=== PATIENT | female | born 1965 | race Caucasian/White ===

== ENCOUNTER → 2019-11-17 | Outpatient (CLI) | payer OTHER ==
[~2019-11-17] MED LIST: ACHD5005 PO; CIPR-225 PO; LEVO75TA PO; PRD20T PO
--- NOTE | 2019-11-17 14:01 | Diagnostic Imaging Report ---
INDICATION: Right flank pain. TIME OF EXAM: 1:37 PM FINDINGS: Single view of the abdomen demonstrates bowel gas pattern to be nonobstructive. No radiopaque urinary tract calculi are seen. No free air. IMPRESSION: No acute feature detected. Dictated by: Dictated on workstation # [id number]
== END ==
LOC: RAD 13:00
PROVIDERS: ATTEND Nurse Practitioner Family
DX: R10.9 Unspecified abdominal pain (principal)
CPT/HCPCS: 74018

== ENCOUNTER → 2021-12-13 | Outpatient (CLI) | payer OTHER ==
--- NOTE | 2021-12-13 08:02 | Diagnostic Imaging Report ---
INDICATION: Right upper quadrant abdominal pain. Gallbladder sonography performed in the routine fashion. The liver shows normal echogenicity without focal lesion. Gallbladder is unremarkable. No stones or wall thickening. Common duct measured 5 mm. Portal vein is patent with hepatopetal flow. Pancreas is not well seen due to overlying gas. Visualized portions of aorta and IVC are normal. Right kidney measured 8.4 cm in length and was unremarkable. There was no ascites. IMPRESSION: Unremarkable ultrasound of the right upper quadrant. Dictated by: Dictated on workstation # [id number]
== END ==
LOC: RAD 07:15
PROVIDERS: ATTEND Nurse Practitioner Family
DX: R10.11 Right upper quadrant pain (principal)
CPT/HCPCS: 76705

== ENCOUNTER → 2021-12-27 | Outpatient (CLI) | payer OTHER ==
[~2021-12-27] MED LIST changes: +CATHETER FLUSH 10 ML SYR IV PRN
--- NOTE | 2021-12-27 12:37 | Diagnostic Imaging Report ---
RADIOPHARMACEUTICAL: 5.35 mCi Tc-99m Choletec IV INDICATION: Abdominal pain. COMPARISON: Ultrasound dated December 13, 2021. TECHNIQUE: Anterior dynamic imaging for 1 hour. Additional 60 minutes of imaging was performed after the patient ingested an 8-ounce can of Ensure Plus. FINDINGS: There is homogenous uptake throughout the liver. The gallbladder is visualized at 35 minutes and small bowel at 20 minutes. After ingesting an 8-ounce can of Ensure, there is abnormal contraction of the gallbladder with a gallbladder ejection fraction calculated at less than 8%. IMPRESSION: 1. No evidence of acute cholecystitis or common duct obstruction. 2. Abnormally low GBEF of less than 8%. This can relate to chronic acalculous cholecystitis versus biliary dyskinesia. Dictated by: Dictated on workstation # [id number]
== END ==
LOC: CARD 09:42
PROVIDERS: ATTEND Nurse Practitioner Family
DX: R10.11 Right upper quadrant pain (principal)
CPT/HCPCS: 78227

== ENCOUNTER 2023-03-02 18:01 | Emergency (ER) | payer OTHER ==
[~2023-03-02] VITALS: Ht 160 cm; Wt 67.1 kg
[~2023-03-02 18:01] MED LIST changes: -CATHETER FLUSH 10 ML SYR IV PRN
[2023-03-02] MEDS ORDERED: KETOROLAC 30 MG/ML VIAL IVP STA (18:29)
[2023-03-02] MEDS ORDERED: NS IV 1000 ML 1,000 ML IV STA (18:29)
[2023-03-02] MEDS ORDERED: fentaNYL INJ 100 MCG/2 ML AMP IVP STA (18:29)
[2023-03-02] MEDS ORDERED: ONDANSETRON 4 MG/2 ML (SDV) Z0FRAN IVP ONE ×2 (18:30→20:00)
--- NOTE | 2023-03-02 18:31 | ED GU-Female ---
General Chief Complaint: Back Problems Stated Complaint: BACK PAIN Nursing Triage Note: PT AMB TO [facility] WITH COMPLAINT OF RIGHT SIDE BACK PAIN. STATES HAS HAD KIDNEY STONES IN THE PAST AND THIS PAIN FEELS SIMILAR. PAIN STARTED AT 3PM. Source: patient Exam Limitations: no limitations History of Present Illness Date Seen by Provider: Mar 02, 2023 Time Seen by Provider: 18:21 Initial Comments Here with complaint of right-sided back pain that started at about 3 PM today. She feels like it is a kidney stone. She feels like she passed 1 a few days ago as well. Does have history of similar in the past and they thought that it was likely a kidney stone. Denies blood in her urine or stool. Denies any recent injury. Pain is to the right flank and posterior. She denies dysuria, fever or chills. She does have nausea. She did try Tylenol No. 3 and states that did not really help a lot. Timing/Duration: this afternoon Severity/Quality: moderate, severe Location: right flank Radiation: none Activities at Onset: none Prior Genitourinary Problems: none Associated Symptoms: No abdominal pain, No fever/chills, No lower back pain; nausea/vomiting; No polyuria, No urinary frequency Allergies and Home Medications Allergies Coded Allergies: No Known Drug Allergies (Unverified , 11/08/15) Patient Home Medication List Home Medication List Reviewed: Yes Ciprofloxacin HCl (Cipro) 500 Mg Tablet, 500 MG PO BID Prescribed by: CHANDLER BOWEN on 11/08/15 0334 Hydrocodone Bit/Acetaminophen (Lortab 5 Mg Tablet) 1 Each Tablet, 1 EACH PO Q4H PRN for PAIN Prescribed by: CHANDLER BOWEN on 11/08/15 0340 Levothyroxine Sodium (Synthroid) 75 Mcg Tablet, 75 MCG PO DAILY, (Reported) Entered as Reported by: SHAISTA JOHNSON on 11/08/15 0112 Prednisone (Prednisone) 20 Mg Tab, 20 MG PO DAILY Prescribed by: CHANDLER BOWEN on 11/08/15 0336 Review of Systems Review of Systems Constitutional: see HPI; No chills, No fever EENTM: no symptoms reported Respiratory: No cough Cardiovascular: No chest pain, No edema Gastrointestinal: abdominal pain (Right flank), nausea, vomiting Genitourinary: see HPI, flank pain; denies hematuria : No Musculoskeletal: back pain; No muscle pain Skin: No change in color, No rash Psychiatric/Neurological: No Symptoms Reported Past Chwgehj-Mdovfz-Urngfi Hx Patient Social History Tobacco Use?: No Use of E-Cig and/or Vaping dev: No Substance use?: No Alcohol Use?: No Pt feels they are or have been: No Past Medical History Surgeries: Yes Breast, Hysterectomy Respiratory: No Cardiac: No Neurological: No Reproductive Disorders: No Genitourinary: Yes Kidney Stones Endocrine: Yes Hypothyroidsim Family Medical History No Pertinent Family Hx Physical Exam Vital Signs Vital Signs - First Documented 03/02/23 18:08 Temp 35.8 Pulse 87 Resp 18 B/P (MAP) 148/85 (106) Pulse Ox 99 O2 Delivery Room Air Capillary Refill : Less Than 3 Seconds Height, Weight, BMI Height: 5'3" Weight: 145lbs. oz. 65.457903nn; 26.00 BMI Method:Stated General Appearance: WD/WN, mild distress HEENT: PERRL/EOMI, pharynx normal Neck: full range of motion, supple Cardiovascular: regular rate, rhythm, no murmur Respiratory: lungs clear, no accessory muscle use Gastrointestinal: non tender, soft Back: CVA tenderness (R); No CVA tenderness (L); decreased range of motion, other (Pain with movement to the right mid back.) Neurologic/Psychiatric: alert, oriented x 3 Skin: normal color, warm/dry Progress/Results/Core Measures Suspected Sepsis SIRS Temperature: Pulse: 87 Respiratory Rate: 18 Laboratory Tests 03/02/23 18:21: White Blood Count 7.3 Blood Pressure 148 /85 Mean: 106 Laboratory Tests 03/02/23 18:21: Creatinine 0.80, Platelet Count 276, Total Bilirubin 0.4 Results/Orders Lab Results Laboratory Tests Test 03/02/23 18:21 03/02/23 18:40 Range/Units White Blood Count 7.3 4.3-11.0 10^3/uL Red Blood Count 4.39 3.80-5.11 10^6/uL Hemoglobin 13.3 11.5-16.0 g/dL Hematocrit 41 35-52 % Mean Corpuscular Volume 93 80-99 fL Mean Corpuscular Hemoglobin 30 25-34 pg Mean Corpuscular Hemoglobin Concent 33 32-36 g/dL Red Cell Distribution Width 13.3 10.0-14.5 % Platelet Count 276 130-400 10^3/uL Mean Platelet Volume 10.4 9.0-12.2 fL Immature Granulocyte % (Auto) 0 % Neutrophils (%) (Auto) 45 42-75 % Lymphocytes (%) (Auto) 42 12-44 % Monocytes (%) (Auto) 7 0-12 % Eosinophils (%) (Auto) 5 0-10 % Basophils (%) (Auto) 0 0-10 % Neutrophils # (Auto) 3.3 1.8-7.8 10^3/uL Lymphocytes # (Auto) 3.1 1.0-4.0 10^3/uL Monocytes # (Auto) 0.5 0.0-1.0 10^3/uL Eosinophils # (Auto) 0.4 H 0.0-0.3 10^3/uL Basophils # (Auto) 0.0 0.0-0.1 10^3/uL Immature Granulocyte # (Auto) 0.0 0.0-0.1 10^3/uL Sodium Level 140 135-145 MMOL/L Potassium Level 4.0 3.6-5.0 MMOL/L Chloride Level 105 98-107 MMOL/L Carbon Dioxide Level 27 21-32 MMOL/L Anion Gap 8 5-14 MMOL/L Blood Urea Nitrogen 13 7-18 MG/DL Creatinine 0.80 0.60-1.30 MG/DL Estimat Glomerular Filtration Rate 85 BUN/Creatinine Ratio 16 Glucose Level 96 70-105 MG/DL Calcium Level 9.7 8.5-10.1 MG/DL Corrected Calcium 8.5-10.1 MG/DL Total Bilirubin 0.4 0.1-1.0 MG/DL Aspartate Amino Transf (AST/SGOT) 24 5-34 U/L Alanine Aminotransferase (ALT/SGPT) 33 0-55 U/L Alkaline Phosphatase 97 40-136 U/L C-Reactive Protein High Sensitivity 0.09 0.00-0.50 MG/DL Total Protein 7.4 6.4-8.2 GM/DL Albumin 4.6 H 3.2-4.5 GM/DL Urine Color YELLOW Urine Clarity CLEAR Urine pH 6.5 5-9 Urine Specific [place] 1.015 L 1.016-1.022 Urine Protein NEGATIVE NEGATIVE Urine Glucose (UA) NEGATIVE NEGATIVE Urine Ketones NEGATIVE NEGATIVE Urine Nitrite NEGATIVE NEGATIVE Urine Bilirubin NEGATIVE NEGATIVE Urine Urobilinogen 0.2 < = 1.0 MG/DL Urine Leukocyte Esterase NEGATIVE NEGATIVE Urine RBC (Auto) NEGATIVE NEGATIVE Urine RBC NONE /HPF Urine WBC NONE /HPF Urine Crystals NONE /LPF Urine Bacteria NEGATIVE /HPF Urine Casts PRESENT /LPF Urine Hyaline Casts RARE /LPF Urine Mucus SMALL H /LPF Urine Culture Indicated NO My Orders Orders - SHELDON MAYERS MD Cbc With Automated Diff (03/02/23 18:29) Comprehensive Metabolic Panel (03/02/23 18:29) Hs C Reactive Protein (03/02/23 18:29) Ua Culture If Indicated (03/02/23 18:29) Ondansetron Injection (Zofran Injectio (03/02/23 18:30) Ns Iv 1000 Ml (Sodium Chloride 0.9%) (03/02/23 18:29) Ed Iv/Invasive Line Start (03/02/23 18:29) Fentanyl Inj (Sublimaze Injection) (03/02/23 18:29) Ketorolac Injection (Toradol Injection) (03/02/23 18:29) Ct Abd/Pelvis Wo(Kidney Stone) (03/02/23 18:29) Dexamethasone Injection (Decadron Inje (03/02/23 20:00) Ondansetron Injection (Zofran Injectio (03/02/23 20:00) Hydrocodone/Apap 5/325 Tablet (Lortab 5 (03/02/23 20:00) Medications Given in ED Current Medications Medications Dose Ordered Sig/Ankur Route Start Time Stop Time Status Last Admin Dose Admin Ondansetron HCl 4 mg ONCE ONCE IVP 03/02/23 18:30 03/02/23 18:31 DC 03/02/23 18:40 4 MG Vital Signs/I&O 03/02/23 18:08 Temp 35.8 Pulse 87 Resp 18 B/P (MAP) 148/85 (106) Pulse Ox 99 O2 Delivery Room Air Capillary Refill : Less Than 3 Seconds Blood Pressure Mean: 106 Progress Note : Progress Note Seen and evaluated. IV, labs including CBC, CMP and CRP as well as UA ordered. We will get CT abdomen pelvis without contrast to evaluate for kidney stones. Fentanyl 75 mcg IV, Toradol 30 mg IV and Zofran 4 mg IV ordered. Monitor patient. Differential diagnosis includes ureteral stone, urinary tract infection, musculoskeletal pain 1940: I have reviewed CT scan and do not see renal stones on my interpretation. Labs reviewed and show grossly normal CBC, CMP, CRP and UA. Radiology report does not show any significant abnormality on CT abdomen pelvis. She did have some improvement with pain medicine but this has started to wear off. I do believe there is probably a musculoskeletal component and/or costochondritis c omponent. Decadron 10 mg IV as well as Zofran 4 mg IV and hydrocodone 5/325 1 tab p.o. given. No indication for admission. We will continue outpatient treatment with prescribed and OTC pain medicines as well as topical agents and she will follow-up with her doctor. Discharged home with return precautions. Patient verbalized understanding instructions and agreement with plan. Diagnostic Imaging Diagonstic Imaging: CT Plain Films/CT/US/NM/MRI: abdomen, pelvis Comments [facility], [place] NAME: ROJELIO HAWKINS [facility] REC#: [id number] PT STATUS: REG ER : 1965 PHYSICIAN: SHELDON MAYERS MD ADMIT DATE: 03/02/23/ER Signed Date of Exam:03/02/23 CT ABD/PELVIS WO(KIDNEY STONE) PROCEDURE: CT urinary tract, rule out kidney stone. TECHNIQUE: Multiple contiguous axial images were obtained through the abdomen and pelvis without the use of intravenous contrast. Auto Exposure Controls were utilized during the CT exam to meet ALARA standards for radiation dose reduction. INDICATION: Flank pain. Evaluate for urolithiasis. COMPARISON: 11/08/2015. FINDINGS: Lung bases demonstrate no findings of pneumonia or edema. There is no pleural or pericardial effusion. There are bilateral breast implants. The liver demonstrates no evidence of a focal intrahepatic abnormality. The patient is status post cholecystectomy. There is no abnormal biliary dilatation. Pancreas and spleen are unremarkable. There is no adrenal mass. The kidneys demonstrate no findings of hydronephrosis or urolithiasis. There is no perinephric fat stranding. The stomach is distended with apparent food products. There is no small or large bowel dilation evident. There is moderate stool within the colon. There is no abnormal colonic thickening. There is no pericolonic fat stranding. The appendix is normal. There are no findings of free air, free fluid, or abscess. The patient is status post hysterectomy. The urinary bladder is nondistended. No pathologically enlarged abdominal or pelvic lymph nodes evident. The aorta is normal in caliber. There is a dextroscoliosis of the thoracolumbar spine. There is no acute osseous abnormality. Most advanced endplate changes are at the L5-S1 level. IMPRESSION: 1. No CT findings of urolithiasis or hydronephrosis. There is no perinephric fat stranding. 2. Prior cholecystectomy and hysterectomy. 3. Distended stomach without gastric wall thickening. There is no bowel obstruction or evidence of appendicitis. 4. No free air, free fluid, abscess, or adenopathy. Dictated by: Dictated on workstation # [id number] Dict: 03/02/231855 Trans: 03/02/231926 [id number] [id number] Interpreted by: KAMAR DYKES MD Electronically signed by: KAMAR DYKES MD 03/02/231926 Reviewed: Reviewed by Me Departure Impression Primary Impression: Right flank pain Disposition: HOME, SELF-CARE Condition: Stable Departure-Patient Inst. Decision time for Depature: 20:10 Referrals: QUANG YAO MD (PCP/Family) Primary Care Physician Patient Instructions: Flank Pain ED Add. Discharge Instructions: All discharge instructions reviewed with patient and/or family. Voiced understanding. Take medications as prescribed. You may take [id number] Tylenol/acetaminophen 1000 mg every 6-8 hours as needed for pain if you are not taking prescribed pain medicine. Do not take both at the same time as they both have acetaminophen in them. You may take ibuprofen 600 mg every 8 hours as need ed for pain. You may use topical agents such as IcyHot with lidocaine, Aspercreme with lidocaine or similar to area of concern per package directions. Follow-up with your doctor in a few days for recheck. Drink plenty of fluids. Return for worse pain, fever, vomiting, weakness, breathing problems or other concerns as needed. Scripts Ondansetron (Ondansetron Odt) 4 Mg Tab.rapdis 4 MG PO Q6H PRN for NAUSEA/VOMITING, #8 TAB 0 Refills Prov: SHELDON MAYERS MD 03/02/23 Hydrocodone/Acetaminophen (Hydrocodone-Acetamin 5-325 mg) 5 Mg-325 Mg Tablet 1 TAB PO Q6H PRN for PAIN-MODERATE (5-7) for 7 Days, #8 TAB 0 Refills Prov: SHELDON MAYERS MD 03/02/23 Copy Copies To 1: QUANG YAO MD, TIMOTHY D MD Mar 02, 2023 18:31
[2023-03-02 18:37] LABS: BASOPHILS % (AUTO) 0 % (0-10); EOSINOPHILS # (AUTO) 0.4 10^3/uL (0.0-0.3); EOSINOPHILS % (AUTO) 5 % (0-10); HEMATOCRIT 41 % (35-52); HEMOGLOBIN 13.3 g/dL (11.5-16.0); LYMPHOCYTES # (AUTO) 3.1 10^3/uL (1.0-4.0); LYMPHOCYTES % (AUTO) 42 % (12-44); MEAN CORPUSCULAR HEMOGLOBIN 30 pg (25-34); MEAN CORPUSCULAR HGB CONC 33 g/dL (32-36); MEAN CORPUSCULAR VOLUME 93 fL (80-99); MEAN PLATELET VOLUME 10.4 fL (9.0-12.2); MONOCYTES # (AUTO) 0.5 10^3/uL (0.0-1.0); MONOCYTES % (AUTO) 7 % (0-12); NEUTROPHILS # (AUTO) 3.3 10^3/uL (1.8-7.8); NEUTROPHILS % (AUTO) 45 % (42-75); PLATELET COUNT 276 10^3/uL (130-400); WHITE BLOOD COUNT 7.3 10^3/uL (4.3-11.0)
[2023-03-02 18:39] LABS: ALBUMIN 4.6 GM/DL (3.2-4.5)
[2023-03-02 18:40] LABS: CHLORIDE 105 MMOL/L (98-107); SODIUM 140 MMOL/L (135-145)
[2023-03-02 18:41] LABS: CALCIUM 9.7 MG/DL (8.5-10.1)
[2023-03-02 18:42] LABS: GLUCOSE 96 MG/DL (70-105); TOTAL PROTEIN 7.4 GM/DL (6.4-8.2)
[2023-03-02 18:43] LABS: CARBON DIOXIDE 27 MMOL/L (21-32)
[2023-03-02 18:44] LABS: BILIRUBIN,TOTAL 0.4 MG/DL (0.1-1.0)
[2023-03-02 18:45] LABS: ALKALINE PHOSPHATASE 97 U/L (40-136)
[2023-03-02 18:46] LABS: GFR ESTIMATED 85
[2023-03-02 18:47] LABS: BUN/CREATININE RATIO 16
[2023-03-02 18:48] LABS: BILIRUBIN,URINE NEGATIVE (NEGATIVE); CLARITY,URINE CLEAR; COLOR,URINE YELLOW; GLUCOSE, URINE (UA) NEGATIVE (NEGATIVE); KETONES,URINE NEGATIVE (NEGATIVE); LEUKOCYTE ESTERASE ,URINE NEGATIVE (NEGATIVE); NITRITE,URINE NEGATIVE (NEGATIVE); PH,URINE 6.5 (5-9); PROTEIN,URINE NEGATIVE (NEGATIVE)
[2023-03-02 18:49] LABS: ALANINE AMINOTRANSFERASE 33 U/L (0-55)
--- NOTE | 2023-03-02 19:04 | Diagnostic Imaging Report ---
PROCEDURE: CT urinary tract, rule out kidney stone. TECHNIQUE: Multiple contiguous axial images were obtained through the abdomen and pelvis without the use of intravenous contrast. Auto Exposure Controls were utilized during the CT exam to meet ALARA standards for radiation dose reduction. INDICATION: Flank pain. Evaluate for urolithiasis. COMPARISON: 11/08/2015. FINDINGS: Lung bases demonstrate no findings of pneumonia or edema. There is no pleural or pericardial effusion. There are bilateral breast implants. The liver demonstrates no evidence of a focal intrahepatic abnormality. The patient is status post cholecystectomy. There is no abnormal biliary dilatation. Pancreas and spleen are unremarkable. There is no adrenal mass. The kidneys demonstrate no findings of hydronephrosis or urolithiasis. There is no perinephric fat stranding. The stomach is distended with apparent food products. There is no small or large bowel dilation evident. There is moderate stool within the colon. There is no abnormal colonic thickening. There is no pericolonic fat stranding. The appendix is normal. There are no findings of free air, free fluid, or abscess. The patient is status post hysterectomy. The urinary bladder is nondistended. No pathologically enlarged abdominal or pelvic lymph nodes evident. The aorta is normal in caliber. There is a dextroscoliosis of the thoracolumbar spine. There is no acute osseous abnormality. Most advanced endplate changes are at the L5-S1 level. IMPRESSION: 1. No CT findings of urolithiasis or hydronephrosis. There is no perinephric fat stranding. 2. Prior cholecystectomy and hysterectomy. 3. Distended stomach without gastric wall thickening. There is no bowel obstruction or evidence of appendicitis. 4. No free air, free fluid, abscess, or adenopathy. Dictated by: Dictated on workstation # [id number]
[2023-03-02 19:15] LABS: BACTERIA,URINE NEGATIVE /HPF; HYALINE CASTS, URINE RARE /LPF
[2023-03-02] MEDS ORDERED: HYDROcodone/APAP 5 MG/325 MG (LORTAB) TAB PO ONE (20:00)
[2023-03-02] MEDS ORDERED: ACHD5005 PO (20:11)
[2023-03-02] MEDS ORDERED: ONDA4TAB11 PO (20:11)
[2023-03-02 20:20] VITALS: BP 131/83
== END 2023-03-02 20:20 | disposition home or self-care (01) ==
LOC: EDUNIT# 18:01 → ER 18:02
DX: M54.9 Dorsalgia, unspecified (principal); R11.2 Nausea with vomiting, unspecified; Z87.442 Personal history of urinary calculi
CPT/HCPCS: 36415; 74176; 80053; 81000; 85025; 86141